=== PATIENT | male | born 1995 | race Caucasian/White ===

== ENCOUNTER 2017-02-07 03:37 | Emergency (ER) | payer OTHER ==
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
[2017-02-07 03:51] VITALS: BP 117/70; PULSE 80; TEMP 97.5; BMI 23.3
[2017-02-07] MEDS ORDERED: DIPHTH,PERTUSS(ACELL),TET 0.5 ML DISP.SYRIN IM ONE (04:18)
== END 2017-02-07 04:21 | disposition home or self-care (01) ==
LOC: FER 03:37
PROC: 0HQ0XZZ Repair Scalp Skin, External Approach (ICD-10-PCS; principal; 2017-02-07)
DX: S01.01XA Laceration without foreign body of scalp, initial encounter (principal); W22.8XXA Striking against or struck by other objects, initial encounter; Y93.89 Activity, other specified; Y92.410 Unspecified street and highway as the place of occurrence of the external cause
CPT/HCPCS: 99281-25

== ENCOUNTER 2017-02-14 13:42 | Emergency (ER) | payer OTHER ==
[2017-02-14 13:49] VITALS: BP 119/73; PULSE 79; TEMP 98; BMI 23.3
--- NOTE | 2017-02-14 14:05 | PDOC ---
Suture Removal/Wound Check HPI - History of Present Illness Chief Complaint: Suture/Staple Removal(Here) Stated Complaint: STAPLE REMOVAL Time Seen by Provider: 02/14/17 14:03 - Onset of Previous Treatment Comment:: 02/14/17 14:04 Scalp laceration, uncomplicated, one week ago. [place] in place Wound is healed well. No crusting or drainage. No bleeding. No swelling, erythema, induration. Impression: Healing wound, no sign of infection Plan: Fei removed atraumatically. Bacitracin applied. Avoid vigorous brushing her combing for 1 more week. Continue to apply bacitracin for 1 week. Recheck if there is bleeding or sign of infection, including redness, swelling, or drainage. Fully ambulatory and in no distress upon discharge to follow-up as recommended Past History - Past Medical History Allergies/Adverse Reactions: Allergies Allergy/AdvReac Type Severity Reaction Status Date / Time latex Allergy Verified 02/14/17 13:44 No Known Drug Allergies Allergy Verified 02/14/17 13:44 peanut Allergy Verified 02/14/17 13:44 Home Medications: Ambulatory Orders No Home Medications 08/31/12 COPD: No - Immunization History Td Vaccination: Yes Immunization Up to Date: Yes - Suicide/Smoking/Psychosocial Hx Smoking Status: No Smoking History: Never smoked Have you smoked in the past 12 months: No Number of Cigarettes Smoked Daily: 0 Information on smoking cessation initiated: No 'Breaking Loose' booklet given: 02/07/17 Hx Alcohol Use: No Drug/Substance Use Hx: No Substance Use Type: None *DC/Admit/Observation/Transfer Diagnosis at time of Disposition: Removal of fei - Discharge Dispostion Disposition: HOME Condition at time of disposition: Improved Admit: No - Referrals - Patient Instructions Printed Discharge Instructions: DI for Suture Removal Additional Instructions: Keep clean and dry. Avoid vigorous brushing her combing for 1 more week. Continue bacitracin for 1 week. Recheck if there is bleeding or sign of infection. - Post Discharge Activity
== END 2017-02-14 14:13 | disposition home or self-care (01) ==
LOC: FER 13:42
DX: Z48.02 Encounter for removal of sutures (principal)
CPT/HCPCS: 99281-25